=== PATIENT | female | born 1955 | race Caucasian/White ===

== ENCOUNTER 2018-01-14 05:38 | Inpatient (IN) | payer OTHER ==
[2018-01-14] MEDS ORDERED: BUPIVACAINE/EPI 0.5% 30 ML SDV ONE (06:45)
[2018-01-14] MEDS ORDERED: THROMBIN (BOVINE) 5,000 UNIT VIAL TP ONE (06:45)
[2018-01-14] MEDS ORDERED: ZOLPIDEM TARTRATE 5 MG TAB PO PRN (06:47)
[2018-01-14] MEDS ORDERED: ONDANSETRON 4 MG/2 ML VIAL IVP PRN ×2 (06:47→07:02)
[2018-01-14] MEDS ORDERED: IBUPROFEN 600 MG TAB PO PRN (06:47)
--- NOTE | 2018-01-14 06:47 | PDHPUP ---
History & Physical Update H&P update statement: This history and physical update is based on an assessment of the patient which was completed after admission or registration (within 24 hours), but prior to the surgery/procedure. H&P update: H&P reviewed & patient examined, no change in patient's condition since H&P completed
--- NOTE | 2018-01-14 06:48 | POSTOPPROG ---
Post Op Note Date of Operation: 01/14/18 Surgeon: Manuel Okeefe Aprn: Quincy Cervantes Anesthesiologist: Jamal Jorgensen Anesthesia: GET(General Endotracheal) Pre-op Diagnosis: Right carotid stenosis Post-op Diagnosis: Same Procedure: Right CEA Inf/Abcess present in the surg proc area at time of surgery?: No EBL: Minimal Complications: no immediate Specimen(s): plaque
[2018-01-14] MEDS ORDERED: LORazepam 0.5 MG TAB PO PRN (06:51)
[2018-01-14] MEDS ORDERED: ALBUTEROL 3 ML DEYVIAL IH PRN (07:02)
[2018-01-14] MEDS ORDERED: DEXAMETHASONE 4 MG/ML VIAL IVP PRN (07:02)
[2018-01-14] MEDS ORDERED: oxyCODONE IR 5 MG TAB PO PRN (07:02)
[2018-01-14] MEDS ORDERED: NALOXONE HCL 0.4 MG/ML INJ IVP PRN ×2 (07:02→09:50)
[2018-01-14] MEDS ORDERED: HYDROmorphONE/DILAUDID 2 MG/ML INJ IVP PRN (07:02)
[2018-01-14] MEDS ORDERED: ACETAMINOPHEN 500 MG TAB PO PRN (07:02)
--- NOTE | 2018-01-14 07:02 | PDANEPAE ---
ANE History of Present Illness R CEA ANE Past Medical History - Cardiovascular History Hx Hypertension: Yes Hx Arrhythmias: No Hx Chest Pain: No Hx Coronary Artery / Peripheral Vascular Disease: Yes Hx CHF / Valvular Disease: No Hx Palpitations: No Cardiovascular History Comment: PVD. hyperlipidemia - Pulmonary History Hx COPD: No Hx Asthma/Reactive Airway Disease: No Hx Recent Upper Respiratory Infection: No Hx Oxygen in Use at Home: No Hx Sleep Apnea: No Sleep Apnea Screening Result - Last Documented: Positive Pulmonary History Comment: JOCELIN triggers - Neurologic History Hx Cerebrovascular Accident: No Hx Seizures: No Hx Dementia: No Neurologic History Comment: Left toes w/numbness - Endocrine History Hx Diabetes: No - Renal History Hx Renal Disorders: No - Liver History Hx Hepatic Disorders: No - Neurological & Psychiatric Hx Hx Neurological and Psychiatric Disorders: Yes Neurological / Psychiatric History Comment: situational anxiety - Cancer History Hx Cancer: No - Congenital Disorder History Hx Congenital Disorders: No - GI History Hx Gastrointestinal Disorders: Yes Gastrointestinal History Comment: has had issues with diarrhea r/t frequent ABX tx when was haveing recurring infections in breast wound - Other Health History Other Health History: wears glasses. arthritis in neck, L>R - Chronic Pain History Chronic Pain: Yes (left neck) - Surgical History Prior Surgeries: tonsillectomy as a child. 2 c-sections. 2 abdomal cerclage placements. bilat breast duct removal. iridotomy bilat eyes ANE Review of Systems Review of Systems: - Exercise capacity METS (RN): 4 METS ANE Patient History - Allergies Allergies/Adverse Reactions: cephalexin [From Keflex] Allergy (Verified 01/14/18 06:28) Hives metronidazole [From Flagyl] Allergy (Verified 01/14/18 06:28) Hives morphine Allergy (Verified 01/11/18 16:26) skin crawling feeling - Home Medications Home Medications: LORazepam [Ativan (*)] 0.5 mg PO DAILY PRN 01/05/18 [Last Taken Unknown] Lisinopril/Hydrochlorothiazide [Zestoretic 20-12.5 mg Tablet] 1 each PO DAILY [Last Taken Unknown] - Smoking Hx Smoking Status: Current every day smoker - Family Anes Hx Family Hx Anesthesia Complications: none ANE Labs/Vital Signs - Vital Signs Height: 167.64 cm Weight: 70.307 kg ANE Physical Exam - Airway Neck exam: FROM Mallampati Score: Class 2 Mouth exam: normal dental/mouth exam - Pulmonary Pulmonary: clear to auscultation - Cardiovascular Cardiovascular: regular rate and rhythym - ASA Status ASA Status: III ANE Anesthesia Plan Anesthesia Plan: general endotracheal anesthesia
[2018-01-14] MEDS ORDERED: PROPOFOL/EMULSION 500 MG/50 ML BOTTLE IV ONE ×2 (07:06→07:07)
[2018-01-14] MEDS ORDERED: REMIFENTANIL HCL 1 MG VIAL ONE ×2 (07:06→07:07)
[2018-01-14] MEDS ORDERED: SUCCINYLCHOLINE CHLORIDE 200 MG/10 ML SYR IVP ONE (07:10)
[2018-01-14] MEDS ORDERED: DEXAMETHASONE 4 MG/ML VIAL ONE (07:14)
[2018-01-14] MEDS ORDERED: ONDANSETRON 4 MG/2 ML VIAL ONE (07:14)
[2018-01-14] MEDS ORDERED: SURGIFLO MATRIX KIT WITH THROMBIN 8 ML TP ONE (08:31)
[2018-01-14] MEDS ORDERED: RANITIDINE 50 MG/2 ML VIAL ONE (08:32)
[2018-01-14] MEDS ORDERED: LABETALOL HCL 5 MG/ML 20 ML MDV ONE (09:05)
--- NOTE | 2018-01-14 09:09 | POSTANESTH ---
Post Anesthetic Evaluation Cardiovascular Status: Normal, Stable Respiratory Status: Normal, Stable Level of Consciousness/Mental Status: Can Participate in Eval, Alert and Oriented Pain Control: Adequate, Prn Tx Ordered Nausea/Vomiting Control: Adequate, Prn Tx Ordered Complications Possibly Related to Anesthesia: None Noted
--- NOTE | 2018-01-14 09:32 | GOP ---
DATE OF OPERATION: 01/14/2018 SURGEON: Manuel Okeefe MD BALLOON DESIGN PRINTER: Quincy Cervantes MD. ANESTHESIA: General. ANESTHESIOLOGIST: Jamal Jorgensen DO. PREOPERATIVE DIAGNOSIS: Critical right carotid artery stenosis. POSTOPERATIVE DIAGNOSIS: Critical right carotid artery stenosis. PROCEDURE PERFORMED: Right carotid endarterectomy with Dacron patch angioplasty. FINDINGS: See below. INDICATIONS: 62-year-old female with a prior left carotid artery occlusion and a high-grade critical right carotid artery stenosis. She is undergoing a carotid endarterectomy at this time. Risks and benefits were explained including, but not limited to bleeding, infection, stroke, nerve injury, recurrent stenosis, untoward cardiovascular complications as well as others. All questions were answered, she desires to proceed. DESCRIPTION OF PROCEDURE: General anesthesia was induced. Ultrasound was used to identify the low-lying carotid bifurcation. A transverse incision was created within skin lines. The platysma muscle was divided. The anterior border of the sternocleidomastoid muscle was dissected out exposing the carotid sheath. The facial vein was divided between clamps and ties. The common carotid artery, internal carotid artery, external carotid artery and superior thyroid artery branches were all encompassed with loops. The vagus nerve was identified and preserved as was the hypoglossal nerve. A focal type plaque was noted at the carotid bifurcation,. There was otherwise soft appearing proximal and distal common and internal carotid arteries. A heparin bolus was administered. Stump pressure was noted to be 35 mmHg prior to clamping. Clamps were applied. A longitudinal arteriotomy was created. The endarterectomy was completed - this corresponded to an at least 90% stenosis. A very nice smooth tapering endpoint was easily obtained. The arteriotomy was closed with a Dacron patch with competing 6-0 Prolene sutures. The artery was fore bled and back bled. Excellent hemostasis was assured. Floseal was placed across the arteriotomy. The neck was closed in layers with absorbable sutures followed by Dermabond. The patient was extubated in the operating room and taken to recovery moving all 4 extremities uneventfully. /[id number]/MODL MTDD
[2018-01-14] MEDS ORDERED: fentaNYL 100 MCG/2 ML INJ ONE (09:36)
[2018-01-14] MEDS: fentaNYL 100 MCG/2 ML INJ IVP PRN ×2 (09:37→09:46)
[2018-01-14] MEDS ORDERED: LABETALOL HCL 5 MG/ML 20 ML MDV IVP PRN (09:50)
[2018-01-14] MEDS ORDERED: oxyCODONE IR 5 MG TAB ONE (09:50)
[2018-01-14] MEDS: KETOROLAC 15 MG/1 ML SDV IVP SCH ×3 (10:22→23:46)
[2018-01-14] MEDS: LISINOPRIL/HCTZ 20/12.5MG 1 EA TAB PO SCH (11:06)
[2018-01-14] MEDS: HYDROCODONE/APAP 5/325 TAB PO PRN ×2 (14:26→20:34)
[2018-01-15] MEDS: HYDROCODONE/APAP 5/325 TAB PO PRN ×2 (03:24→09:05)
[2018-01-15] MEDS: KETOROLAC 15 MG/1 ML SDV IVP SCH (05:49)
[2018-01-15 08:26] VITALS: BP 134/81
[2018-01-15] MEDS: LISINOPRIL/HCTZ 20/12.5MG 1 EA TAB PO SCH (08:59)
--- NOTE | 2018-01-15 10:07 | GDS ---
REASON FOR ADMISSION: Carotid stenosis. HOSPITAL COURSE: 62-year-old female, admitted with a high-grade right carotid stenosis. She underwent an uncomplicated carotid endarterectomy. She had a benign postoperative course. She was discharged home the following morning in good condition, neurologically intact. She will be seen in followup by Dr. Okeefe in 2 weeks. She was to resume all pre-hospital medications. She has prescriptions for [place] as needed for discomfort. Full activity instructions were explained prior to leaving. /[id number]/MODL MTDD
--- NOTE | 2018-01-15 10:59 | ASMTLACE ---
PAM Length of stay for Answers: 1 day current admission Acuity / Level of Answers: Yes Care: Did the patient have an inpatient admission? Comorbidities - select Answers: Chronic pulmonary disease all that apply Congestive heart failure Other Notes: Critical bilateral carotid stenosis, nocturnal hypoxmia, high cholesterol # of Emergency department Answers: 1-2 visits in the last 6 months Social determinants Answers: Mental health diagnosis (anxiety, depression, pers onality disorders, etc.) Score: 13 Date Signed: 01/15/2018 10:58 AM Electronically Signed By:Ingrid Jeff RN
--- NOTE | 2018-01-15 11:06 | ASMTLACE ---
[place] Length of stay for Answers: 1 day current admission Acuity / Level of Answers: Yes Care: Did the patient have an inpatient admission? Comorbidities - select Answers: Other Notes: Hypotension, high all that apply cholesterol, nocturnal hypoxia, carotid stenos is # of Emergency department Answers: 1-2 visits in the last 6 months Score: 6 Date Signed: 01/15/2018 11:06 AM Electronically Signed By:Ingrid Jeff RN
--- NOTE | 2018-01-15 11:16 | ASDISCHSUM ---
Discharge Information Plan Status:Home with No Needs Medically Cleared to Leave:01/15/2018 Discharge Date:01/15/2018 10:43 AM CM D/C Disposition:Home, Routine, Self-Care ADT D/C Disposition:Home, Routine, Self-Care Projected Discharge Date:01/15/2018 10:43 AM Transportation at D/C:Family Discharge Delay Reason: Follow-Up Date:01/15/2018 10:43 AM Discharge Slot:1 - 8:01 am - 12:00 noon Final Diagnosis:Bilateral carotid stenosis, s/p carotid endarterectomy Placement Information Patient Contact Information Contact Name:PAIGE Relationship:Daughter Address: Home Phone: City: [facility] Phone: [facility]/[employer] Code: Email: Financial Information Financial Class:HMO and PPO Plans Primary Plan Desc:[facility] Primary Plan Number:[id number] Secondary Plan Desc: Secondary Plan Number: Assessment Information LACE LACE Length of stay for Answers: 1 day current admission Acuity / Level of Answers: Yes Care: Did the patient have an inpatient admission? Comorbidities - select Answers: Chronic pulmonary disease all that apply Congestive heart failure Other Notes: Critical bilateral carotid stenosis, nocturnal hypoxmia, high cholesterol # of Emergency department Answers: 1-2 visits in the last 6 months Social determinants Answers: Mental health diagnosis (anxiety, depression, pers onality disorders, etc.) Score: 13 Date Signed: 01/15/2018 10:58 AM Electronically Signed By:Ingrid Jeff RN [facility] TORRE[facility] Progress Note TORREY Hugo CM Note Notes: Reviewed chart. Pt admitted for bilateral carotid stenosis, s/p carotid endarterectomy. History includes hypotension, hypercholesteremia, vitamin D deficiency, anxiety, nocturnal hypoxia, bilateral carotid stenosis. Per MD notes, pt to discharge home independently today with no identified needs. No IM/WILD signed, not applicable. Pt to follow up as directed. CM available for any further issues or concerns. LACE revision - LACE score corrected, incorrect diagnoses previously entered. Pt does not have COPD, CHF. Discharge Plan: Home independently Date Signed: 01/15/2018 11:04 AM Electronically Signed By:Ingrid Jeff RN LACE LACE Length of stay for Answers: 1 day current admission Acuity / Level of Answers: Yes Care: Did the patient have an inpatient admission? Comorbidities - select Answers: Other Notes: Hypotension, high all that apply cholesterol, nocturnal hypoxia, carotid stenos is # of Emergency department Answers: 1-2 visits in the last 6 months Score: 6 Date Signed: 01/15/2018 11:06 AM Electronically Signed By:Ingrid Jeff RN Intervention Information
--- NOTE | 2018-01-17 08:03 | GCON ---
DATE OF CONSULTATION: 01/17/2018 REASON FOR EVALUATION: Postoperative hypertension. 62-year-old female, status post an elective right carotid endarterectomy on Wednesday for a critical right carotid artery stenosis in the setting of a left contralateral artery occlusion. She underwent an endarterectomy with Dacron patch angioplasty. She was discharged home the following morning, uneventfully. Her blood pressures had been ranging in the 90s to 120s. Last evening, the patient developed progressively worsening hypertension with associated right-sided headache. No visual changes. No other neurologic complaints. In the emergency room, she was found to have a blood pressure of 230/120. She responded rapidly to hydralazine and Dilaudid with symptom improvement as well. CT imaging of the brain was performed showing no evidence of intracranial bleed. Electrolytes were within reference range. She was admitted for overnight observation. At the present time, the patient reports to be feeling improved. Her headache has improved. She has no current neurologic complaints. She denies chest pains or shortness of breath. She has minimal incisional pain. She has no other specific concerns. PAST MEDICAL HISTORY: Hypertension, hypercholesterolemia, bilateral carotid stenosis, anxiety, vitamin D deficiency, nocturnal hypoxia. PAST SURGICAL HISTORY: Benign breast excision, tonsillectomy, x2, right carotid endarterectomy. MEDICATIONS: Vitamin D, vitamin B12, Ativan, lisinopril/hydrochlorothiazide, fish oil. ALLERGIES: Keflex. SOCIAL: She is a C[employer]. She is . She still smokes. Minimal alcohol use. FAMILY HISTORY: Noncontributory. REVIEW OF SYSTEMS: Unremarkable, other than acute neck and cardiovascular complaints only. PHYSICAL EXAMINATION: VITAL SIGNS: Blood pressure currently 170/80, pulse 69, respirations 16, temperature today 36.8. GENERAL: The patient is alert, appropriate, comfortable. HEENT: Pupils are equally round and reactive to light and accommodation. Extraocular muscles are intact. Sensation is symmetric throughout her face. Tongue midline. NECK: With minimal induration. No erythema. 2+ carotid pulse. HEART: Regular without murmurs. LUNGS: Clear bilaterally. ABDOMEN: Soft, nontender. EXTREMITIES: Without edema. NEUROLOGIC: Alert and appropriate, moving all extremities well. 2+ radial pulses bilaterally. IMPRESSION: Postoperative hypertension secondary to cerebral hyperperfusion syndrome. The patient is currently improved with oral antihypertensives. The patient will likely return to home later this afternoon. In addition to her lisinopril, will add calcium channel blockade as well, as she appears to be responding nicely. We will see in followup as scheduled. The patient currently records her blood pressures at home with a home cuff, which she will continue to do. Additional warning signs were discussed as well. /[id number]/MODL MTDD
[2018-01-20] MEDS ORDERED: IBUPROFEN 800 MG TAB PO PRN (06:00)
== END 2018-01-15 10:43 | disposition home or self-care (01) | DRG 39 ==
LOC: F3N 05:38 → F3E 10:06
PROVIDERS: ADMIT Internal Medicine; ATTEND Surgery
PROC: 03CK0Z6 (ICD-10-PCS; principal; 2018-01-14 07:15)
DX: I65.23 Occlusion and stenosis of bilateral carotid arteries (principal); I97.3 Postprocedural hypertension; I10 Essential (primary) hypertension; I73.9 Peripheral vascular disease, unspecified; E78.00 Pure hypercholesterolemia, unspecified; F41.8 Other specified anxiety disorders; G47.34 Idiopathic sleep related nonobstructive alveolar hypoventilation; E55.9 Vitamin D deficiency, unspecified; F17.210 Nicotine dependence, cigarettes, uncomplicated
CPT/HCPCS: C1768; J0330; J1100; J1644; J1885; J2405; J2704; J2780; J3010

== ENCOUNTER 2018-01-16 21:08 | Observation (INO) | payer OTHER ==
--- NOTE | 2018-01-16 21:12 | EDPHY ---
H & P Time Seen by Provider: 01/16/18 21:12 HPI/ROS: HPI CHIEF COMPLAINT: Hypertension, headache, recent carotid endarterectomy. HISTORY OF PRESENT ILLNESS: This is a very pleasant 62-year-old female, she recently had a right carotid endarterectomy, by Dr. Okeefe, this was performed on Wednesday. She stayed overnight in the hospital Wednesday was discharged Wednesday morning. She was normotensive upon discharge. She was given a blood pressure medication lisinopril/HCTZ. She has been monitoring her blood pressure at home and has gotten 160 systolic. This evening she noticed her blood pressure even higher 220/120s at home. She denies any chest pain. She does complain of a right-sided headache. She did take a x-ray dose lisinopril HCTZ without any improvement. She complains of a 7/10 current headache. Addition complains of 6/10 right neck pain. She denies any significant swelling to her right neck. Denies any chest pain or shortness of breath. Past Medical History: Hypertension Past Surgical History: Multiple surgeries including right carotid endarterectomy recently. Breast surgery, eye surgery, abdominal surgery. Social History: Denies drugs or alcohol. Recently use tobacco but has not had any tobacco use in surgery. Family History: Noncontributory ROS REVIEW OF SYSTEMS: 10 Systems were reviewed and negative with the exception of the elements mentioned in the history of present illness. Exam Constitutional triage nursing summary reviewed, vital signs reviewed, awake/ alert. Vital signs noted at triage. Hypertensive. 233/117. Eyes normal conjunctivae and sclera, EOMI, PERRLA. HENT right neck: Fresh incision line. Sutures in place. No significant swelling. No bruit No visible hematoma, no signs infection. normal inspection, atraumatic, moist mucus membranes, no epistaxis, neck supple/ no meningismus, no raccoon eyes. Respiratory clear to auscultation bilaterally, normal breath sounds, no respiratory distress, no wheezing. Cardiovascular rate normal, regular rhythm, no murmur, no edema, distal pulses normal. Gastrointestinal soft, non-tender, no rebound, no guarding, normal bowel sounds, no distension, no pulsatile mass. Genitourinary no CVA tenderness. Musculoskeletal no midline vertebral tenderness, full range of motion, no calf swelling, no tenderness of extremities, no meningismus, good pulses, neurovascularly intact. Skin pink, warm, & dry, no rash, skin atraumatic. Neurologic normal neurological exam on exam awake, alert and oriented x 3, AAOx3, moves all 4 extremities equally, motor intact, sensory intact, CN II-XII intact, normal cerebellar, normal vision, normal speech. Psychiatric normal mood/affect. Heme/Lymph/Immune no lymphadenopathy. Differential Diagnosis: Includes but is not limited to in a particular order hypertensive urgency, hypertensive emergency, electrolyte disturbance, intracranial Medical Decision Making: Plan for this patient IV establishment blood draw, EKG, troponin, basic electrolytes, CT scan head without contrast due to headache and hypertension. IV hydralazine as been ordered for hypertension. Additionally IV Dilaudid 0.5 mg for pain control. Re-evaluation: EKG interpretation by me on record in [employer] system. Impression time of EKG 2129, sinus rhythm rate of 72 no signs of acute ischemia. There is subtle ST depression V4 V5 V6. No ST elevation Patient was given 10 mg IV hydralazine, 0.5 mg IV Dilaudid her blood pressure improved from 230/120 to 161/83. Heart rate is 74. Pulse ox 96% on room air. Plan for admission for observation today for hypertension status post carotid endarterectomy. CT scan head without contrast: Negative for acute bleed or infarct. 2204: Spoke with Dr. Okeefe, agrees to admit the patient. Patient be admitted overnight for observation. 2205, current blood pressure 161/83, heart rate 74, pulse ox 97% on room air. Patient re-examination this time resting comfortably no acute distress. Feels better after IV Dilaudid IV hydralazine. Resting comfortably. Neurological exam is unremarkable. Plan for observation admission overnight. Source: Patient - Medical/Surgical History Hx Asthma: No Hx Chronic Respiratory Disease: No Hx Diabetes: No Hx Cardiac Disease: No Hx Renal Disease: No Hx Cirrhosis: No Hx Alcoholism: No Hx HIV/AIDS: No Hx Splenectomy or Spleen Trauma: No Other PMH: 2 c-sections; breast surgery; - Social History Smoking Status: Current every day smoker Constitutional: Initial Vital Signs Temperature (C) 36.2 C 01/16/18 21:14 Heart Rate 94 01/16/18 21:14 Respiratory Rate 18 01/16/18 21:14 Blood Pressure 233/117 H 10/21/18 21:14 O2 Sat (%) 95 01/16/18 21:14 O2 Delivery Mode Room Air Allergies/Adverse Reactions: cephalexin [From Keflex] Allergy (Verified 01/16/18 21:12) Hives metronidazole [From Flagyl] Allergy (Verified 01/16/18 21:12) Hives morphine Allergy (Verified 01/16/18 21:12) skin crawling feeling Home Medications: Medication Instructions Recorded LORazepam [Ativan (*)] 0.5 mg PO DAILY PRN 01/05/18 Lisinopril/Hydrochlorothiazide 1 each PO DAILY 01/05/18 [Zestoretic 20-12.5 mg Tablet] Hydrocodone/APAP 5/325 [[place] 1 - 2 tab PO Q4HRS PRN tab 01/15/18 5/325 (*)] Ibuprofen [Motrin (*)] 800 mg PO Q8H PRN tab 01/15/18 Diltiazem [Cardizem 60 MG (*)] 60 mg PO Q6HRS #60 tab 01/17/18 Hydrocodone/APAP 5/325 [[place] 2 tab PO Q4HRS PRN tab 01/17/18 5/325 (*)] LORazepam [Ativan (*)] 1 mg PO Q4 PRN tab 01/17/18 Medical Decision Making - Data Points Laboratory Results: Laboratory Results 01/16/18 21:28 01/16/18 21:28 Medications Given: Diltiazem HCl (Cardizem Immediate Release) 60 mg PO Q6HRS JORDI Stop: 07/16/18 11:59 Last Admin: 01/17/18 20:07 Dose: Not Given Lisinopril/HCTZ (Zestoretic) 1 ea PO DAILY JORDI Stop: 07/16/18 08:59 Last Admin: 01/17/18 09:02 Dose: 1 ea Sodium Chloride (Ns) 1,000 mls @ 75 mls/hr IV CONT JORDI Stop: 07/16/18 16:59 Last Admin: 01/17/18 17:29 Dose: 1,000 mls Ketorolac Tromethamine (Toradol) 15 mg IVP Q6H JORDI Stop: 01/22/18 04:29 Last Admin: 01/17/18 22:05 Dose: 15 mg Lorazepam (Ativan) 1 mg PO Q4 PRN PRN Reason: Anxiety, Able to Take PO Stop: 07/15/18 22:22 Last Admin: 01/17/18 22:08 Dose: 1 mg Discontinued Medications Diltiazem HCl (Cardizem Immediate Release) 30 mg PO Q6HRS JORDI Stop: 07/16/18 00:00 Last Admin: 01/17/18 05:46 Dose: 30 mg Diltiazem HCl (Cardizem Immediate Release) 30 mg PO ONCE ONE Stop: 01/17/18 06:51 Last Admin: 01/17/18 07:25 Dose: 30 mg Hydralazine HCl (Apresoline) 10 mg IVP EDNOW ONE Stop: 01/16/18 21:19 Last Admin: 01/16/18 21:24 Dose: 10 mg Hydralazine HCl (Apresoline) 10 mg IVP ONCE ONE Stop: 01/17/18 16:46 Last Admin: 01/17/18 17:22 Dose: 10 mg Hydromorphone HCl (Dilaudid) 0.5 mg IVP EDNOW ONE Stop: 01/16/18 21:19 Last Admin: 01/16/18 21:24 Dose: 0.5 mg Hydromorphone HCl (Dilaudid) 0.5 mg IVP EDNOW ONE Stop: 01/16/18 22:07 Last Admin: 01/16/18 22:28 Dose: 0.5 mg Ketorolac Tromethamine (Toradol) 30 mg IVP ONCE ONE Stop: 01/16/18 22:21 Last Admin: 01/16/18 22:33 Dose: 30 mg Point of Care Test Results: Chemistry 01/16/18 21:30 POC Troponin I 0.01 ng/mL ng/mL (0.00-0.08) Departure - Departure Disposition: [facility] Inpatient Acute Clinical Impression: Hypertension Condition: Good
[2018-01-16] MEDS ORDERED: hydrALAZINE 20 MG/ML VIAL IVP ONE (21:18)
[2018-01-16] MEDS ORDERED: HYDROmorphONE/DILAUDID 2 MG/ML INJ IVP ONE ×2 (21:18→22:06)
[2018-01-16 21:47] LABS: PLATELET COUNT 192 10^3/uL (150-400)
[2018-01-16 21:50] LABS: INR 0.8 (0.83-1.16); PROTIME(PATIENT) 11.3 SEC (12.0-15.0)
[2018-01-16] MEDS ORDERED: KETOROLAC 30 MG/1 ML SDV IVP ONE (22:20)
[2018-01-16] MEDS ORDERED: LORazepam 1 MG TAB PO PRN (22:23)
[2018-01-16] MEDS ORDERED: HYDROCODONE/APAP 5/325 TAB PO PRN (22:26)
--- NOTE | 2018-01-16 22:31 | SOAPPROG ---
SOAP Progress Note Assessment/Plan: Assessment:62yr female s/p Rt CEA Wednesday evening for critical stenosis with contralateral occlusion. Discharged normotensive. Represents to ER this evening with increasing HTN >200/>100 with headache starting this evening. No other neuro concerns noted. Lytes normal. Responded rapidly to IV hydralazine and Dilaudid. Being admitted for overnight observation for post endarterectomy cerebral reperfusion syndrome. Care plan reviewed with ED doc stucco mason. Plan: 01/16/18 22:28 Objective: Vital Signs Temp Pulse Resp BP Pulse Ox 36.9 C 73 18 181/95 H 94 01/16/18 21:36 01/16/18 21:36 01/16/18 21:36 01/16/18 21:36 01/16/18 21:36 PT 11.3 SEC (12.0-15.0) L 01/16/18 21:28 INR 0.80 (0.83-1.16) L 01/16/18 21:28 ICD10 Worksheet Patient Problems: Problems Problem Status Onset Hypertension Acute Carotid stenosis, right Acute
[2018-01-16] MEDS: DILTIAZEM 30 MG TAB PO SCH (23:55)
[2018-01-17] MEDS: KETOROLAC 15 MG/1 ML SDV IVP SCH ×4 (04:09→22:05)
[2018-01-17] MEDS: DILTIAZEM 30 MG TAB PO SCH (05:46)
[2018-01-17] MEDS ORDERED: DILTIAZEM 30 MG TAB PO ONE (06:50)
[2018-01-17] MEDS: LISINOPRIL/HCTZ 20/12.5MG 1 EA TAB PO SCH (09:02)
--- NOTE | 2018-01-17 11:23 | ASMTCMCOM ---
CM Note CM Note Notes: Pt is a 62 y/o female admitted for hypertension, headache and recent carotid endarterectomy with Dr. Okeefe. Pt will most likely d/c independent when medically stable. No therapies ordered at this time. CM available for changes. Plan: Independent Date Signed: 01/17/2018 11:22 AM Electronically Signed By:ANN Jean-Baptiste
[2018-01-17] MEDS: DILTIAZEM 60 MG TAB PO SCH ×4 (12:24→20:07)
[2018-01-17] MEDS ORDERED: hydrALAZINE 20 MG/ML VIAL IVP ONE (16:45)
[2018-01-17] MEDS ORDERED: hydrALAZINE 20 MG/ML VIAL IVP PRN (16:55)
[2018-01-17] MEDS ORDERED: NS 1,000 ML IV SCH (17:00)
--- NOTE | 2018-01-17 17:48 | SOAPPROG ---
SOAP Progress Note Assessment/Plan: Assessment/Plan: Plan to stay another night to monitor BPs. Manual BP readings preferred over automatic for consistent readings. Add IV fluids, hydralazine for SBP >190, and toradol. Continue with scheduled Diltiazem and lisinopril/HCT. 01/17/18 17:50 Subjective: POD #3 s/p right carotid endarterectomy. Patient was readmitted last night for hypertensive episodes and reprofusion syndrome headaches. Her BPs were well managed at 140s/70s throughout most of today with addition of Diltiazem to her home antihypertensives. Headache returned this afternoon with 180s systolic BP readings. No nausea or emesis. Patient has chronic left sided neck pain. Objective: Vital Signs Temp Pulse Resp BP Pulse Ox 36.9 C 78 14 180/84 H 94 01/17/18 11:37 01/17/18 15:29 01/17/18 11:37 01/17/18 17:22 01/17/18 11:37 PT 11.3 SEC (12.0-15.0) L 01/16/18 21:28 INR 0.80 (0.83-1.16) L 01/16/18 21:28 Physical exam: Gen: A&O x3, no acute distress, afebrile HEENT: Right neck incision clean and healing well, nontender, appropriate induration Skin: normal Heart: RRR Lungs: CTA bilateral Extremities: no edema ICD10 Worksheet Patient Problems: Problems Problem Status Onset Hypertension Acute Carotid stenosis, right Acute
[2018-01-17] MEDS ORDERED: KETOROLAC 15 MG/1 ML SDV IVP SCH (18:00)
[2018-01-18] MEDS: DILTIAZEM 60 MG TAB PO SCH ×2 (00:45→08:02)
[2018-01-18] MEDS: KETOROLAC 15 MG/1 ML SDV IVP SCH ×2 (05:30→10:52)
--- NOTE | 2018-01-18 08:34 | GDS ---
HOSPITAL COURSE: 62-year-old female who underwent a right carotid endarterectomy on January 14, 2018. She was readmitted for reperfusion syndrome. She presented to the emergency department with headache and hypertension. She was managed while in the hospital with her home medications, diltiazem, and an occasional dose of hydralazine. Her blood pressures range between 110-130 systolic this morning. Her headache has resolved. Minimal incisional pain. No chest pain or shortness of breath. She is to discharge to home today. Prescription provided for diltiazem. She is to check her blood pressure with her home blood pressure cuff and continue using diltiazem until her blood pressures have stabilized. Regular diet. No activity restrictions. Will follow up in the office in 2 weeks. Current home medications: Lisinopril/ hydrochlorothiazide, Ativan, ibuprofen, [place], and diltiazem. /[id number]/MODL MTDD
[2018-01-18 10:49] VITALS: BP 122/78
[2018-01-18] MEDS: LISINOPRIL/HCTZ 20/12.5MG 1 EA TAB PO SCH (10:52)
--- NOTE | 2018-01-20 07:10 | CPEKG ---
Test Reason : OPEN Blood Pressure : / mmHG Vent. Rate : 072 BPM Atrial Rate : 072 BPM P-R Int : 149 ms QRS Dur : 092 ms QT Int : 399 ms P-R-T Axes : 050 014 -04 degrees QTc Int : 437 ms Sinus rhythm Confirmed by Emile Pate ([id number]) on 01/20/2018 7:09:25 AM Referred By: Confirmed By:Emile Pate
== END 2018-01-18 12:10 | disposition home or self-care (01) ==
LOC: F3E 23:24
PROVIDERS: ADMIT Surgery; ATTEND Surgery
DX: I10 Essential (primary) hypertension (principal); Z98.62 Peripheral vascular angioplasty status; R51 Headache; F17.210 Nicotine dependence, cigarettes, uncomplicated
CPT/HCPCS: 70450; 93005; 96374; 96375; 96376; 99285; G0378; 84484-PO; J0360; J1170; J1885

== ENCOUNTER → 2018-06-09 | Outpatient (CLI) | payer OTHER ==
[~2018-06-09] MED LIST: IOPAMIDOL (ISOVUE-370) 150 ML BTL IV ONE
== END ==
LOC: FIMAGING 10:19
PROVIDERS: ATTEND Surgery
DX: I65.23 Occlusion and stenosis of bilateral carotid arteries (principal); R20.0 Anesthesia of skin
CPT/HCPCS: Q9967